=== PATIENT | female | born 1930 | race Caucasian/White ===

== ENCOUNTER 2017-04-21 05:10 | Emergency (ER) | payer OTHER ==
[2017-04-21 07:21] VITALS: BP 151/76
== END 2017-04-21 08:20 | disposition home or self-care (01) ==
LOC: ED 05:10
DX: S41.112A Laceration without foreign body of left upper arm, initial encounter (principal); S13.4XXA Sprain of ligaments of cervical spine, initial encounter; S70.01XA Contusion of right hip, initial encounter; I10 Essential (primary) hypertension; G20 Parkinson's disease; F02.80 Dementia in other diseases classified elsewhere, unspecified severity, without behavioral disturbance, psychotic disturbance, mood disturbance, and anxiety; Z88.5 Allergy status to narcotic agent; Z88.1 Allergy status to other antibiotic agents; Z88.8 Allergy status to other drugs, medicaments and biological substances; Z88.6 Allergy status to analgesic agent; W18.30XA Fall on same level, unspecified, initial encounter; Y99.8 Other external cause status; Y93.89 Activity, other specified; Y92.89 Other specified places as the place of occurrence of the external cause
CPT/HCPCS: 90715; J2405; J3010

== ENCOUNTER 2017-10-11 13:11 | Emergency (ER) | payer OTHER ==
[~2017-10-11] VITALS: Ht 165.1 cm; Wt 49.0 kg
[2017-10-11 13:39] VITALS: Ht 165.1 cm; Wt 49.0 kg
[2017-10-11 17:19] VITALS: BP 157/83
== END 2017-10-11 17:19 | disposition home or self-care (01) ==
LOC: ED 13:11
DX: S51.812A Laceration without foreign body of left forearm, initial encounter (principal); S05.12XA Contusion of eyeball and orbital tissues, left eye, initial encounter; S09.90XA Unspecified injury of head, initial encounter; I10 Essential (primary) hypertension; G20 Parkinson's disease; F32.9 Major depressive disorder, single episode, unspecified; Z88.2 Allergy status to sulfonamides; Z88.6 Allergy status to analgesic agent; Z88.1 Allergy status to other antibiotic agents; W01.0XXA Fall on same level from slipping, tripping and stumbling without subsequent striking against object, initial encounter; Y93.89 Activity, other specified; Y92.89 Other specified places as the place of occurrence of the external cause; Y99.8 Other external cause status

== ENCOUNTER 2017-11-13 16:46 | Emergency (ER) | payer OTHER ==
[~2017-11-13] VITALS: Ht 154.9 cm; Wt 57.6 kg
[2017-11-13 19:25] VITALS: BP 143/70
== END 2017-11-13 19:25 | disposition home or self-care (01) ==
LOC: ED 16:46
DX: S61.412A Laceration without foreign body of left hand, initial encounter (principal); I10 Essential (primary) hypertension; G20 Parkinson's disease; Z88.1 Allergy status to other antibiotic agents; Z88.6 Allergy status to analgesic agent; Z88.2 Allergy status to sulfonamides; V98.8XXA Other specified transport accidents, initial encounter; Y93.89 Activity, other specified; Y99.8 Other external cause status; Y92.89 Other specified places as the place of occurrence of the external cause

== ENCOUNTER 2018-01-01 10:11 | Emergency (ER) | payer OTHER ==
[~2018-01-01] VITALS: Ht 160 cm; Wt 57.6 kg
[2018-01-01 10:19] VITALS: Ht 160 cm; Wt 57.6 kg
[2018-01-01 11:45] VITALS: BP 132/68
== END 2018-01-01 12:26 | disposition home or self-care (01) ==
LOC: ED 10:11
DX: S40.022A Contusion of left upper arm, initial encounter (principal); I10 Essential (primary) hypertension; Z88.2 Allergy status to sulfonamides; Z88.1 Allergy status to other antibiotic agents; Z88.8 Allergy status to other drugs, medicaments and biological substances; X58.XXXA Exposure to other specified factors, initial encounter; Y93.89 Activity, other specified; Y92.89 Other specified places as the place of occurrence of the external cause; Y99.8 Other external cause status
CPT/HCPCS: 90715

== ENCOUNTER 2018-02-15 05:14 | Inpatient (IN) | payer OTHER ==
[~2018-02-15] VITALS: Ht 157.5 cm; Wt 52.4 kg
[2018-02-15 06:56] VITALS: Ht 157.5 cm; Wt 52.4 kg
[2018-02-15 07:14] LABS: BASOPHIL % 1.1 % (0-2); PLATELET COUNT 337 x10^3mcL (130-400); RED CELL DISTRIBUTION WIDTH 16.4 % (11.5-14.5)
[2018-02-15] MEDS ORDERED: AMLODIPINE BES2.5 M1 PO (07:31)
[2018-02-15] MEDS ORDERED: ARICEPT10 MG PO (07:31)
[2018-02-15] MEDS ORDERED: MYRBETRIQ50 MG PO (07:32)
[2018-02-15] MEDS ORDERED: RESTASIS0.051 OU (07:32)
[2018-02-15] MEDS ORDERED: ZOLOFT25 MG PO (07:32)
[2018-02-15] MEDS ORDERED: SYSTANE BALANCE10 M1 OP (07:33)
[2018-02-15 07:34] LABS: CALCIUM 9.4 mg/dL (8.5-10.1); CARBON DIOXIDE 31.6 mmol/L (21-32); CHLORIDE SERUM 106 mmol/L (98-107); CREATININE SERUM 1.3 mg/dL (0.6-1.0); GLUCOSE SERUM 96 mg/dL (74-106); POTASSIUM SERUM 4.2 mmol/L (3.5-5.1); SODIUM SERUM 143 mmol/L (136-145)
[2018-02-15 07:39] LABS: ALBUMIN 3.4 g/dL (3.4-5.0); ALKALINE PHOSPHATASE 107 U/L (46-116); ALT/SGPT 18 U/L (14-59); AST/SGOT 20 U/L (15-37); TOTAL PROTEIN, SERUM 7.7 g/dL (6.4-8.2)
[2018-02-15 07:44] LABS: T3 TOTAL 0.85 ng/mL
[2018-02-15 07:52] LABS: UA SPECIFIC GRAVITY 1.015 (1.005-1.035); microscopic required? YES; urine erythrocyte TRACE (NEGATIVE)
[2018-02-15 07:57] LABS: MAGNESIUM 2.3 mg/dL (1.8-2.4); PHOSPHOROUS 3.5 mg/dL (2.5-4.9)
[2018-02-15 08:05] LABS: CHOLESTEROL/HDL RATIO 3.2
[2018-02-15 08:06] LABS: FREE T4 1.02 ng/dL (0.76-1.46); FREE THYROXINE INDEX 2.7 ug/dL (1.4-4.5)
[2018-02-15 12:08] VITALS: BP 170/72
[2018-02-15 13:35] VITALS: BP 172/61
[2018-02-15 15:50] VITALS: BP 158/66
[2018-02-15] MEDS ORDERED: LEVOFLOXACIN500 M1 PO (16:59)
[2018-02-15] MEDS ORDERED: BD LACTINEX1.4 MG PO (17:00)
[2018-02-15 17:31] VITALS: BP 158/66
[2018-02-15 17:59] VITALS: BP 158/66
[2018-02-15 20:00] VITALS: BP 150/66
== END 2018-02-15 20:44 | disposition short-term general hospital (02) | DRG 689 ==
LOC: ED 05:14 → DU 06:45
PROVIDERS: Emergency Medicine; Family Medicine
DX: N39.0 Urinary tract infection, site not specified (principal); G93.41 Metabolic encephalopathy; N17.0 Acute kidney failure with tubular necrosis; G20 Parkinson's disease; I10 Essential (primary) hypertension; Z66 Do not resuscitate; R31.9 Hematuria, unspecified; E78.5 Hyperlipidemia, unspecified; F32.9 Major depressive disorder, single episode, unspecified; W18.39XA Other fall on same level, initial encounter; Z91.81 History of falling; Y93.89 Activity, other specified; Y92.012 Bathroom of single-family (private) house as the place of occurrence of the external cause; Z68.25 Body mass index [BMI] 25.0-25.9, adult; Z85.030 Personal history of malignant carcinoid tumor of large intestine
CPT/HCPCS: 83880; 84439; 97110-GP; 97530-GP; J0360; J0696; J7030; Q0092

== ENCOUNTER 2018-03-19 10:37 | Inpatient (IN) | payer OTHER ==
[~2018-03-19] VITALS: Ht 154.9 cm; Wt 38.6 kg
[~2018-03-19 10:37] MED LIST: AMLODIPINE BES2.5 M1 PO; ARICEPT10 MG PO; BD LACTINEX1.4 MG PO; LEVOFLOXACIN500 M1 PO; MYRBETRIQ50 MG PO; RESTASIS0.051 OU; SYSTANE BALANCE10 M1 OP; ZOLOFT25 MG PO
[2018-03-19] MEDS ORDERED: ZOLOFT100 MG PO (10:45)
[2018-03-19] MEDS ORDERED: TYLENOL WITH CO1 TA2 PO (10:46)
[2018-03-19 11:10] LABS: BASOPHIL % 0.5 % (0-2); PLATELET COUNT 327 x10^3mcL (130-400)
[2018-03-19 11:12] LABS: RED CELL DISTRIBUTION WIDTH 16.5 % (11.5-14.5)
[2018-03-19 11:18] LABS: CALCIUM 8.4 mg/dL (8.5-10.1); CARBON DIOXIDE 26.9 mmol/L (21-32); CHLORIDE SERUM 103 mmol/L (98-107); CREATININE SERUM 1.3 mg/dL (0.6-1.0); GLUCOSE SERUM 88 mg/dL (74-106); POTASSIUM SERUM 4.2 mmol/L (3.5-5.1); SODIUM SERUM 138 mmol/L (136-145)
[2018-03-19 11:23] LABS: ALKALINE PHOSPHATASE 98 U/L (46-116); ALT/SGPT 11 U/L (14-59); AST/SGOT 14 U/L (15-37); BILIRUBIN TOTAL 0.4 mg/dL (0.20-1.00); TOTAL PROTEIN, SERUM 7.1 g/dL (6.4-8.2)
[2018-03-19 13:14] LABS: microscopic required? YES; urine erythrocyte 2+ (NEGATIVE)
[2018-03-19 14:16] VITALS: BP 166/79
[2018-03-19 14:27] LABS: MAGNESIUM 2.1 mg/dL (1.8-2.4); PHOSPHOROUS 3.3 mg/dL (2.5-4.9)
[2018-03-19 14:29] LABS: AMPHETAMINE QUAL UR NONE DETECTED (See below)
[2018-03-19 14:32] LABS: T3 TOTAL 0.99 ng/mL
[2018-03-19 14:40] LABS: FREE T4 0.98 ng/dL (0.76-1.46); FREE THYROXINE INDEX 2.3 ug/dL (1.4-4.5); T4(THYROXINE) 6.9 ug/dL (4.7-13.3)
[2018-03-19 14:48] LABS: CHOLESTEROL/HDL RATIO 3.1
[2018-03-19 15:14] LABS: CALCIUM 9.2 mg/dL (8.5-10.1); CARBON DIOXIDE 23.3 mmol/L (21-32); CHLORIDE SERUM 104 mmol/L (98-107); CREATININE SERUM 1.4 mg/dL (0.6-1.0); GLUCOSE SERUM 80 mg/dL (74-106); POTASSIUM SERUM 4.4 mmol/L (3.5-5.1); SODIUM SERUM 141 mmol/L (136-145)
[2018-03-19 17:37] VITALS: Ht 154.9 cm; Wt 38.6 kg
[2018-03-19 22:00] VITALS: BP 121/61
[2018-03-20 02:53] LABS: BASOPHIL % 0.4 % (0-2); PLATELET COUNT 299 x10^3mcL (130-400)
[2018-03-20 02:57] LABS: RED CELL DISTRIBUTION WIDTH 16.6 % (11.5-14.5)
[2018-03-20 03:05] LABS: CALCIUM 8.4 mg/dL (8.5-10.1); CARBON DIOXIDE 25.8 mmol/L (21-32); CHLORIDE SERUM 107 mmol/L (98-107); CREATININE SERUM 1.2 mg/dL (0.6-1.0); GLUCOSE SERUM 88 mg/dL (74-106); POTASSIUM SERUM 4.1 mmol/L (3.5-5.1); SODIUM SERUM 142 mmol/L (136-145)
[2018-03-20 05:57] VITALS: BP 120/64
[2018-03-20 19:02] VITALS: BP 148/63
[2018-03-20 20:06] VITALS: BP 139/57
[2018-03-21 04:42] VITALS: BP 174/81
[2018-03-21 06:04] LABS: BASOPHIL % 0.2 % (0-2); PLATELET COUNT 317 x10^3mcL (130-400)
[2018-03-21 06:14] LABS: CALCIUM 9.1 mg/dL (8.5-10.1); CARBON DIOXIDE 26.6 mmol/L (21-32); CHLORIDE SERUM 102 mmol/L (98-107); CREATININE SERUM 1.3 mg/dL (0.6-1.0); GLUCOSE SERUM 97 mg/dL (74-106); POTASSIUM SERUM 3.7 mmol/L (3.5-5.1); SODIUM SERUM 139 mmol/L (136-145)
[2018-03-21 06:22] LABS: RED CELL DISTRIBUTION WIDTH 16.3 % (11.5-14.5)
[2018-03-21 08:53] VITALS: BP 142/60
[2018-03-21] MEDS ORDERED: ARICEPT10 MG PO (12:52)
[2018-03-21] MEDS ORDERED: AUG500 PO (13:14)
[2018-03-21] MEDS ORDERED: LAC PO (13:14)
[2018-03-21 13:26] VITALS: BP 142/60
== END 2018-03-21 18:35 | DRG 177 ==
LOC: ED 10:37 → DU 12:49
PROVIDERS: Emergency Medicine; Family Medicine
DX: J69.0 Pneumonitis due to inhalation of food and vomit (principal); N17.0 Acute kidney failure with tubular necrosis; N39.0 Urinary tract infection, site not specified; E44.0 Moderate protein-calorie malnutrition; Z68.1 Body mass index [BMI] 19.9 or less, adult; G31.83 Neurocognitive disorder with Lewy bodies; F02.80 Dementia in other diseases classified elsewhere, unspecified severity, without behavioral disturbance, psychotic disturbance, mood disturbance, and anxiety; R33.8 Other retention of urine; R31.9 Hematuria, unspecified; I10 Essential (primary) hypertension; E78.5 Hyperlipidemia, unspecified; F32.9 Major depressive disorder, single episode, unspecified; Z85.030 Personal history of malignant carcinoid tumor of large intestine
CPT/HCPCS: 83880; 84439; 94150; 97110-GP; 97116-GP; 97530-GP; C9113; J0456; J0696; J1630; J2405; J2543; J7030; J7040; Q0092